=== PATIENT | male | born 1990 | race American Indian/Alaskan Native ===

== ENCOUNTER 2016-03-01 16:03 | Emergency (ER) | payer SELFPAY ==
[2016-03-01 16:30] VITALS: BP 112/67
--- NOTE | 2016-03-03 04:46 | ED Elopement Review ---
ED Pt Elopement review - Call Back decision Pt Call Back Decision: No action required
== END 2016-03-01 19:30 | disposition left against medical advice (07) ==
LOC: ED 16:03
DX: R30.9 Painful micturition, unspecified (principal); R61 Generalized hyperhidrosis; Z53.21 Procedure and treatment not carried out due to patient leaving prior to being seen by health care provider